=== PATIENT | male | born 1970 | race Caucasian/White ===

== ENCOUNTER 2017-12-07 20:12 | Inpatient (IN) | END 2017-12-08 12:25 | disposition home or self-care (01) | DRG 603 ==

== ENCOUNTER 2018-02-19 15:28 | Emergency (ER) | END 2018-02-19 17:09 | disposition home or self-care (01) ==

== ENCOUNTER 2018-05-29 20:08 | Emergency (ER) | END 2018-05-30 | disposition left against medical advice (07) ==